=== PATIENT | male | born 1965 | race African-American/Black ===

== ENCOUNTER 2019-08-30 17:43 | Emergency (ER) | payer SELFPAY ==
--- NOTE | 2019-08-30 18:24 | CT ---
CT cervical spine Technique: Multiple axial sections were obtained from above C1 inferiorly through the bottom of T5. Reconstructed sagittal and coronal images were reviewed. Comparison: No prior cervical spine imaging. Findings: Vertebral bodies and posterior arches are intact. No fracture is seen. Numerous levels of neural foraminal stenosis are seen throughout the cervical spine. No bony central canal stenosis is seen. Disc space narrowing is noted at C4-5, C5-6, C6-7 and C7-T1. Anterior osteophytes are noted at C3-4 through T1-2. No bony central canal stenosis is seen. Mild scattered degenerative apophyseal change is noted. No abnormal subluxation is seen. Scattered degenerative change throughout the uncovertebral joints is also noted. Impression: 1. Diffuse degenerative change. 2. Nothing acute is appreciated on CT study of the cervical spine. Diagnostic code #2 This report was dictated in MDT
--- NOTE | 2019-08-30 18:28 | CT ---
CT chest Technique: Multiple axial sections through the chest were obtained. Intravenous contrast was not utilized. Comparison: No previous study. Findings: Multiple cysts are seen within the liver. No pericardial fluid is seen. Mediastinum appears without abnormality. No axillary adenopathy is seen. Lungs are clear. No acute parenchymal change is seen. No pleural effusions are noted. No pneumothorax is appreciated. Bone window settings were reviewed which shows no acute osseous finding. Several lucent lesions are seen within the vertebral bodies which are believed to be benign. Impression: 1. Nothing acute is appreciated on noncontrast CT study of the chest. 2. Other findings believed to be incidental as described above. Diagnostic code #2 This report was dictated in MDT
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
[2019-08-30] MEDS ORDERED: Ibuprofen 800 MG Tab PO ONE (18:45)
[2019-08-30] MEDS ORDERED: Cyclobenzaprine 10 MG Tab PO ONE (18:45)
== END 2019-08-30 19:02 | disposition home or self-care (01) ==
LOC: MW.ED 17:43
DX: S16.1XXA Strain of muscle, fascia and tendon at neck level, initial encounter (principal); M62.830 Muscle spasm of back; V43.93XA Unspecified car occupant injured in collision with pick-up truck in traffic accident, initial encounter
CPT/HCPCS: 71250; 71250-26; 72125; 72125-26; 99283-25